=== PATIENT | female | born 1965 | race Caucasian/White ===

== ENCOUNTER 2019-08-02 14:54 | Emergency (ER) | payer MEDICAID, OTHER ==
[~2019-08-02] VITALS: Ht 175.3 cm; Wt 67.0 kg
[2019-08-02 15:06] VITALS: BP 107/69
[2019-08-02] MEDS ORDERED: CLIN300C70 PO (16:18)
== END 2019-08-02 16:34 | disposition home or self-care (01) ==
LOC: ER 14:54
DX: S81.802A Unspecified open wound, left lower leg, initial encounter (principal); L03.116 Cellulitis of left lower limb; Z56.0 Unemployment, unspecified; Z88.5 Allergy status to narcotic agent; Z79.2 Long term (current) use of antibiotics; W26.8XXA Contact with other sharp object(s), not elsewhere classified, initial encounter; Y93.89 Activity, other specified; Y92.89 Other specified places as the place of occurrence of the external cause; Y99.0 Civilian activity done for income or pay
CPT/HCPCS: 99283

== ENCOUNTER 2020-08-04 14:46 | Emergency (ER) | payer MEDICAID ==
[~2020-08-04] VITALS: Ht 177.8 cm; Wt 65.9 kg
[2020-08-04 15:14] VITALS: BP 112/72
== END 2020-08-04 17:11 | disposition home or self-care (01) ==
LOC: ER 14:46
DX: S81.802A Unspecified open wound, left lower leg, initial encounter (principal); Z59.0 Homelessness; Z56.0 Unemployment, unspecified; Z88.5 Allergy status to narcotic agent; X58.XXXA Exposure to other specified factors, initial encounter; Y93.89 Activity, other specified; Y92.89 Other specified places as the place of occurrence of the external cause; Y99.8 Other external cause status
CPT/HCPCS: 73590; 99283